=== PATIENT | female | born 1990 | race African-American/Black ===

== ENCOUNTER 2017-01-05 17:40 | Emergency (ER) | payer OTHER ==
[~2017-01-05] VITALS: Ht 170.2 cm; Wt 83.4 kg
[2017-01-05 17:52] VITALS: TEMP 37.1; Ht 170.2 cm; Wt 83.4 kg
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
[2017-01-05 18:13] VITALS: BP 126/75; PULSE 95; O2SAT 96
[2017-01-05] MEDS ORDERED: BCPILLS PO (18:13)
== END 2017-01-05 18:14 | disposition home or self-care (01) ==
LOC: C.EDC 17:42
DX: M79.659 Pain in unspecified thigh (principal); R10.9 Unspecified abdominal pain; M25.559 Pain in unspecified hip; V43.52XA Car driver injured in collision with other type car in traffic accident, initial encounter; Y93.89 Activity, other specified; Y99.8 Other external cause status; Y92.410 Unspecified street and highway as the place of occurrence of the external cause

== ENCOUNTER 2019-11-08 23:07 | Inpatient (IN) ==
[2019-11-08] MEDS ORDERED: OXYTOCIN 30 UNITS/500 ML BAG IV PRN (23:39)
[2019-11-08] MEDS ORDERED: PENICILLIN G POTASSIUM 3 MU in DEXTROSE 5% 100 ML IV PRN (23:39)
[2019-11-08] MEDS: LACTATED RINGER'S 1,000 ML IV PRN (23:40)
[2019-11-08] MEDS ORDERED: fentaNYL 2MCG/ML ROPIV 1.25MG/ML 100 ML BAG EPI ONE (23:51)
[2019-11-08] MEDS ORDERED: fentaNYL citrate 100 MCG/2 ML VIAL ONE (23:51)
[2019-11-08] MEDS ORDERED: ePHEDrine sulfate 50 MG/ML AMP ONE (23:51)
[2019-11-08] MEDS ORDERED: BUPIVACAINE 0.25% 30 ML VIAL ONE (23:51)
--- NOTE | 2019-11-08 23:55 | Anesthesiology Consultation ---
Date of Service November 08, 2019 Assessment & Plan ASA ASA2 Proposed Anesthesia Anesthesia Type: Labor Epidural Risk / Benefits Reviewed With: PT / POA / Parent / Guardian, Accepts Plan and Informed Consent Obtained History Height/Weight Height: 5 ft 7 in Weight: 101.151 kg Allergies Allergy/AdvReac Type Severity Reaction Status Date / Time No Known Allergies Allergy Verified 11/08/19 23:15 Medications Home Medications Medication Instructions Recorded Confirmed Last Taken PNV cmb#95-ferrous fumarate-FA 1 tab PO DAILY 11/08/19 11/08/19 11/08/19 [] Active Medications Generic Name Dose Route Start Last Admin Trade Name Freq PRN Reason Stop Dose Admin Lactated Ringer's 1,000 mls @ 125 mls/hr 11/08/19 23:39 11/09/19 00:47 Lr IV 11/10/19 23:38 0 mls/hr .Q8H PRN Infusion L&D Protocol Protocol Penicillin G Potassium 6 mu/ 262 mls @ 262 mls/hr 11/09/19 00:01 11/09/19 00:25 Dextrose IV 11/09/19 01:00 262 mls/hr NOW STA Administration Past Medical History Medical History Vacuum-assisted vaginal delivery 04/2018 Exercise / Class Metabolic Activity II 4-5 Yardwork/Stairs/Walk up hill Past Surgical History Surgical History No history of previous surgery Past Anesthesia History No Hx of Anesthesia Complications and No Family Hx of Anesthesia Complications History of PONV No Hx of PONV and No Hx of Motion Sickness Social History Smoking Status: Never smoker Hx Alcohol Use: No Hx Substance Use: No Review of Systems denies fever/cough/ colds/ chest pain/ SOB/ CHITO Constitutional: no fever and no chills Respiratory: no cough and no dyspnea denies CHITO Cardiovascular: no chest pain and no dyspnea on exertion Physical Exam Vital Signs Last Vital Signs Temp 37.0 C 11/08/19 23:18 Pulse 103 H 11/09/19 00:54 Resp 18 11/08/19 23:18 BP 109/57 L 11/09/19 00:49 Pulse Ox 100 11/09/19 00:54 ENMT Mouth: no TMJ abnormality and no dentition abnormality Thyromental Distance: > or= 3.5 Finger Breadths Mallampati Class: II Neck neck extension not limited Respiratory normal respiratory effort; no respiratory distress Auscultation: lungs clear to auscultation bilaterally Cardiovascular Rate/Rhythm: regular rate and regular rhythm Neurologic moves all extremities Psychiatric Orientation: alert and oriented x 3 Testing Laboratory Results 11/08/19 23:48
[2019-11-09] MEDS ORDERED: PENICILLIN G POTASSIUM 6 MU in DEXTROSE 5% 250 ML IV STA (00:01)
[2019-11-09 00:04] LABS: Mean Corpuscular Hgb Conc 33.2 g/dL (32-36)
[2019-11-09 00:22] LABS: Hematocrit (blood only) 34.3 % (37-47); Hemoglobin 11.4 g/dL (12.0-16.0); Mean Corpuscular Hemoglobin 26.3 pg (25-34); RDW Coefficient of Variation 15.8 % (11.5-14.5); RDW Standard Deviation 45.6 fL (36.4-46.3); Red Blood Count 4.34 M/uL (4.2-5.4); White Blood Count 9.01 K/uL (4.8-10.8)
[2019-11-09 00:25] LABS: Platelet Count 156 K/uL (130-400)
[2019-11-09 00:26] LABS: Platelet Estimate Normal (Normal)
[2019-11-09] MEDS: LACTATED RINGER'S 1,000 ML IV PRN (00:47)
[2019-11-09] MEDS ORDERED: NALOXONE HCL 0.4 MG/1 ML VIAL/CARP IV PRN (00:56)
[2019-11-09] MEDS ORDERED: ACETAMINOPHEN 1,000 MG/100 ML VIAL IV STA (00:56)
[2019-11-09] MEDS ORDERED: ePHEDrine sulfate 50 MG/ML AMP IV PRN (00:56)
[2019-11-09] MEDS ORDERED: fentaNYL 2MCG/ML ROPIV 1.25MG/ML 100 ML BAG EPI PRN (00:56)
[2019-11-09] MEDS ORDERED: ONDANSETRON INJ 2 MG/ML 2 ML VIAL IV PRN (00:56)
[2019-11-09] MEDS ORDERED: DiphenhydrAMINE HCL 50 MG/ML VIAL IV PRN (00:56)
[2019-11-09] MEDS ORDERED: NALBUPHINE HCL INJ 10 MG/ML AMP IV PRN (00:56)
[2019-11-09] MEDS ORDERED: NALOXONE HCL 1 MG in SODIUM CHLORIDE 0.9% 1000ML 1,000 ML IV PRN (00:56)
--- NOTE | 2019-11-09 03:03 | Obstetrical Progress Note ---
Date of Service November 09, 2019 Assessment & Plan Admission and Anticipated Discharge Date Admission Date: November 08, 2019 Subjective Pt doing well Received epidural analgesia VE: 10100/-1 Bladder cath SROM- thick meconium Anticipate VD Results & Data ([facility]) Vital Signs (Past 12 Hours) Vital Signs Temp Pulse Resp BP Pulse Ox 11/09/19 02:59 120 H 99 11/09/19 02:57 131 H 94 11/09/19 02:54 106 H 97 11/09/19 02:49 132 H 99 11/09/19 02:44 125 H 98 11/09/19 02:39 97 H 99 11/09/19 02:34 122 H 98 11/09/19 02:29 100 H 98 11/09/19 02:27 115 H 92 11/09/19 02:24 117 H 98 11/09/19 02:19 118 H 98 11/09/19 02:14 116 H 100 11/09/19 02:09 94 H 128/59 L 100 11/09/19 02:04 95 H 99 11/09/19 02:00 108 H 18 91 11/09/19 01:59 118 H 99 11/09/19 01:54 114 H 87 L 11/09/19 01:49 105 H 100 11/09/19 01:44 96 H 99 11/09/19 01:39 109 H 105/55 L 97 11/09/19 01:35 112 H 150/56 H 11/09/19 01:34 107 H 98 11/09/19 01:31 95 H 82/43 L 11/09/19 01:30 18 11/09/19 01:29 104 H 97/51 L 100 11/09/19 01:25 101 H 94/52 L 11/09/19 01:24 102 H 100 11/09/19 01:23 94 H 92/50 L 11/09/19 01:19 103 H 100 11/09/19 01:14 101 H 101/58 L 99 11/09/19 01:09 113 H 102/67 100 11/09/19 01:07 96 H 109/57 L 11/09/19 01:05 100 H 98/55 L 11/09/19 01:04 103 H 99 11/09/19 01:03 97 H 101/50 L 11/09/19 01:01 96 H 117/56 L 05/19/20 01:00 18 11/09/19 00:59 97 H 100 11/09/19 00:54 103 H 100 11/09/19 00:49 116 H 109/57 L 100 11/09/19 00:47 117 H 123/58 L 11/09/19 00:45 36.9 C 121 H 134/61 11/09/19 00:44 117 H 100 11/09/19 00:43 104 H 116/56 L 11/09/19 00:41 112 H 136/60 11/09/19 00:39 113 H 99 11/09/19 00:37 124/95 11/09/19 00:34 116 H 134/91 99 11/09/19 00:29 110 H 99 11/09/19 00:24 116 H 99 11/09/19 00:20 97 H 101/62 11/09/19 00:19 97 H 99 11/09/19 00:18 89 89 L 11/09/19 00:14 93 H 96 11/09/19 00:09 109 H 94 11/08/19 23:18 37.0 C 18 11/08/19 23:13 37.0 C 103 H 20 109/56 L
[2019-11-09] MEDS ORDERED: Nursing to Pharmacy Communication ONE (03:17)
[2019-11-09] MEDS ORDERED: METHYLERGONOVINE MALEATE 0.2 MG/ML AMP ONE (06:03)
[2019-11-09] MEDS ORDERED: SUPERCREAM 0.870% 15 GM JAR EXT PRN (06:14)
[2019-11-09] MEDS ORDERED: miSOPROStoL 200 MCG TAB PR ONE (06:14)
[2019-11-09] MEDS ORDERED: ACETAMINOPHEN 325 MG TAB PO PRN (06:14)
[2019-11-09] MEDS ORDERED: OXYTOCIN 30 UNITS/500 ML BAG IV PRN (06:14)
[2019-11-09] MEDS ORDERED: bisacodyL 10 MG SUPP PR PRN (06:14)
[2019-11-09] MEDS ORDERED: BENZOCAINE 20% AER SPR 82.5 GM CAN EXT PRN (06:14)
[2019-11-09] MEDS ORDERED: METHYLERGONOVINE MALEATE 0.2 MG/ML AMP IM ONE (06:14)
[2019-11-09] MEDS ORDERED: DIPHTHERIA/TETANUS/PERTUSSIS 0.5 ML SYR/VIAL IM ONE (06:14)
[2019-11-09] MEDS ORDERED: HYDROCORTISONE ACETATE 25 MG SUPP PR PRN (06:14)
[2019-11-09] MEDS ORDERED: miSOPROStoL 200 MCG TAB ONE (06:32)
[2019-11-09] MEDS: IBUPROFEN 600 MG TAB PO PRN ×4 (06:48→20:09)
[2019-11-09] MEDS: PRENATAL VITAMIN 1 TAB PO SCH (08:37)
[2019-11-09] MEDS: DOCUSATE SODIUM 100 MG CAP PO SCH ×2 (08:37→21:33)
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
[2019-11-09] MEDS ORDERED: COSYNTROPIN 1,000 MCG in SODIUM CHLORIDE 0.9% 50 ML IV ONE (09:30)
--- NOTE | 2019-11-09 15:38 | Delivery Summary ---
DATE OF OPERATION: 11/09/2019 The patient delivered a live infant in left occiput anterior presentation. There was no nuchal cord. was delivered, placed on mother's abdomen. Delayed cord clamp was performed. Cord blood was obtained. Placenta was spontaneously delivered. Inspection of the perineum showed a second-degree midline laceration which is repaired in layers with Vicryl. Rectal exam post repair showed good sphincter tone. The patient did have a second-degree midline laceration. ESTIMATED BLOOD LOSS: 450 mL. Baby and mother are doing well in recovery. All instruments are accounted for x2. I attest to the content of the Intraoperative Record and any orders documented therein. Any exceptions are noted below. MTDD
[2019-11-10] MEDS: IBUPROFEN 600 MG TAB PO PRN (03:57)
[2019-11-10 07:00] LABS: Hematocrit (blood only) 29.1 % (37-47); Hemoglobin 9.6 g/dL (12.0-16.0); Mean Corpuscular Hemoglobin 26.2 pg (25-34); Mean Corpuscular Volume 79.5 fL (80-100); RDW Coefficient of Variation 15.9 % (11.5-14.5); RDW Standard Deviation 46.1 fL (36.4-46.3); Red Blood Count 3.66 M/uL (4.2-5.4); White Blood Count 14.14 K/uL (4.8-10.8)
[2019-11-10 07:18] LABS: Platelet Count 149 K/uL (130-400)
[2019-11-10 07:19] LABS: Platelet Estimate Normal (Normal)
--- NOTE | 2019-11-10 07:50 | Obstetrical Progress Note ---
Date of Service November 10, 2019 Assessment & Plan Admission and Anticipated Discharge Date Admission Date: November 08, 2019 Subjective Patient is seen and examined. She feels well, no complaints. Ambulating without dizziness Voiding without difficulty Tolerating regular diet with out N&V Bleeding is minimal No fever/ chills/ CP/ SOB/ N&V/ Leg pain Breast feeding without problems Vital Signs Temp Pulse Pulse Resp BP BP Pulse Ox 11/10/19 03:45 36.6 C 60 18 104/66 99 11/09/19 23:30 36.8 C 55 L 18 108/64 11/09/19 21:30 36.7 C 11/09/19 19:45 36.6 C 59 L 18 108/64 95 11/09/19 15:55 36.9 C 60 16 115/58 L 98 11/09/19 13:00 36.8 C 61 18 126/74 97 11/09/19 10:15 37.2 C 65 16 125/73 97 11/09/19 09:46 68 121/60 11/09/19 09:31 63 116/56 L 11/09/19 09:16 61 128/62 11/09/19 09:01 59 L 126/58 L 11/09/19 08:46 65 122/57 L 11/09/19 08:31 67 129/63 11/09/19 08:16 74 20 130/63 11/09/19 08:01 62 137/67 11/09/19 07:56 56 L 137/62 Lab Results 11/08/19 11/10/19 Range/Units 23:48 06:20 WBC 9.01 14.14 H (4.8-10.8) K/uL RBC 4.34 3.66 L (4.2-5.4) M/uL Hgb 11.4 L 9.6 L (12.0-16.0) g/dL Hct 34.3 L 29.1 L (37-47) % MCV 79.0 L 79.5 L (80-100) fL MCH 26.3 26.2 (25-34) pg MCHC 33.2 33.0 (32-36) g/dL RDW Std Deviation 45.6 46.1 (36.4-46.3) fL RDW Coeff of Kenisha 15.8 H 15.9 H (11.5-14.5) % Plt Count 156 149 (130-400) K/uL MPV 12.0 H (7.4-10.4) fL Platelet Estimate Normal Normal (Normal) PE: General: Alert, orientedx3, NAD Abd: soft, NT, fundus firm, below Umbilicus Perineum intact, Lochia rubra minimal Ext; NT, no edema AP: 29 yo s/p , ppd# 1 VSS Afebrile doing well Continue routine care Desires d/c today All questions were answered D/C home , f/u in office Results & Data ([facility]) Vital Signs (Past 12 Hours) Vital Signs Temp Pulse Resp BP Pulse Ox 11/10/19 03:45 36.6 C 60 18 104/66 99 11/09/19 23:30 36.8 C 55 L 18 108/64 11/09/19 21:30 36.7 C
[2019-11-10] MEDS: PRENATAL VITAMIN 1 TAB PO SCH (08:03)
[2019-11-10] MEDS: DOCUSATE SODIUM 100 MG CAP PO SCH (08:03)
[2019-11-10] MEDS ORDERED: bisacodyL 5 MG TABEC PO SCH (20:00)
== END 2019-11-10 11:20 | disposition home or self-care (01) | DRG 807 ==
LOC: OPB 23:07 → 4S1 23:11 → 4S2 11-09 10:28

== ENCOUNTER 2021-06-14 23:44 | Inpatient (IN) ==
[2021-06-15] MEDS ORDERED: LACTATED RINGER'S 1,000 ML IV PRN (00:24)
[2021-06-15] MEDS ORDERED: OXYTOCIN 30 UNITS/500 ML BAG IV PRN ×2 (00:24→04:09)
--- NOTE | 2021-06-15 00:38 | History & Physical Report ---
Date of Service June 15, 2021 Assessment & Plan (1) Active labor at term: Plan: 31-year-old -0-0-2 at 40 weeks and 2 days of gestation presenting in active labor with regular contractions, Vital signs stable afebrile, heart rate reassuring, GBS is negative, Patient denies pain management including epidural, Plan to admit, monitor, IV fluids and labs and anticipate Admission and Anticipated Discharge Date Admission Date: June 15, 2021 History of Present Illness Primary Care Provider: NO PCP Patient is a 31-year-old -0-0-2 at 40 weeks and 2 days of gestation who has been having contractions all day yesterday and they got closer and more regular after 8:30 PM. They became every 4 minutes and more painful. She called me around 11 PM and I recommended her to come in. Her stated that she wanted to stay at home as long as possible and she has a Dula. I still recommended to come in. Now she presenting to labor and delivery in active labor having contractions every 2 to 3 minutes and declines epidural for pain. Her cervix is 6 cm dilated, 70% effaced head at -2 station, heart rate reassuring. GBS is negative. Her has been uncomplicated except sickle cell trait, is negative, she is anemic and received IV iron transfusions. Allergies Allergy/AdvReac Type Severity Reaction Status Date / Time No Known Allergies Allergy Verified 11/08/19 23:15 Home Medications Medication Instructions Recorded Confirmed Type vit no.95-ferrous 1 tab PO DAILY 11/08/19 11/08/19 History fumarate 28 mg-folic acid 800 mcg tablet () cholecalciferol (vitamin D3) 100 100 mcg PO DAILY 11/09/19 11/09/19 History mcg (4,000 unit) capsule (Vitamin D3) ferrous sulfate 325 mg (65 mg 325 mg PO DAILY 11/09/19 11/09/19 History iron) tablet (iron) Patient History Medical History (Updated 06/15/21 @ 00:37 by Jaskaran Evans MD) Vacuum-assisted vaginal delivery 04/2018 Surgical History No history of previous surgery Social History Smoking Status: Never smoker Hx Alcohol Use: No Hx Substance Use: No Preferred Language: [place] Communication Ability: Effective In Home Aide Required: No Beliefs That Will Affect Care: None marital status: Current Living Situation: Spouse and Significant Other Current Living Situation Comment: house with and son Other Information That Helps Us Care for You: No Feels Safe at Home: Yes Safety Concerns: Feels Safe At This Time Assistive Devices: None OB History 2 full-term vaginal deliveries, first one was vacuum extraction, second one was with no complications 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
[2021-06-15 01:19] LABS: Hemoglobin 11.8 g/dL (12.0-16.0); Mean Corpuscular Hemoglobin 28.2 pg (25-34); Mean Corpuscular Hgb Conc 33.7 g/dL (32-36); Mean Corpuscular Volume 83.7 fL (80-100); Mean Platelet Volume 12.7 fL (7.4-10.4); Platelet Count 130 K/uL (130-400); Platelet Estimate Normal (Normal); RDW Coefficient of Variation 15.4 % (11.5-14.5); RDW Standard Deviation 47.3 fL (36.4-46.3); Red Blood Count 4.18 M/uL (4.2-5.4); White Blood Count 9.79 K/uL (4.8-10.8)
[2021-06-15] MEDS ORDERED: LIDOCAINE 1% LOCAL 20 ML VIAL ONE (03:47)
[2021-06-15] MEDS ORDERED: HYDROCORTISONE ACETATE 25 MG SUPP PR PRN (04:09)
[2021-06-15] MEDS ORDERED: BENZOCAINE 20% AER SPR 82.5 GM CAN EXT PRN (04:09)
[2021-06-15] MEDS ORDERED: bisacodyL 10 MG SUPP PR PRN (04:09)
[2021-06-15] MEDS ORDERED: ACETAMINOPHEN 325 MG TAB PO PRN (04:09)
[2021-06-15] MEDS ORDERED: DIPHTHERIA/TETANUS/PERTUSSIS 0.5 ML SYR/VIAL IM ONE (04:09)
[2021-06-15] MEDS ORDERED: SUPERCREAM 0.870% 15 GM JAR EXT PRN (04:09)
[2021-06-15] MEDS ORDERED: MEASLES, MUMPS & RUBELLA VIRUS VIAL SQ ONE (04:09)
[2021-06-15] MEDS ORDERED: OXYTOCIN 10 UNITS/ML 10ML VIAL IM ONE (04:09)
--- NOTE | 2021-06-15 04:16 | Delivery Summary ---
Vaginal Delivery Summary Date of Service June 15, 2021 Vaginal Delivery Summary Patient was found to be fully dilated and desire to push she pushed. She pushed thorugh only 2 contractions and delivered the head without difficulty. There was a nuchal cord around the neck x1 which was reduced. And the shoulders were delivered with minimal traction,the baby was handed off to the mother where mouth and nose were suctioned. Baby was moving and crying at that point. Mom desired to wait for 4 minutes until cord was clamped x2 and cut. The cord blood was obtained. And the placenta was found to be in the vagina, delivered spontaneously as intact and complete. Patient has not had epidural for pain and she was very sensitive to touch and declined vaginal exam. Bleeding was minimal and no indications were found for uterine exploration. There was a small second-degree perineal laceration at the posterior fourchette. Lidocaine was used for local anesthesia. Rectal exam was done and excellent sphincter tone was noted. It was repaired with 2-0 Vicryl in a running locked fashion. Excellent hemostasis was achieved. EBL was 150 mL. Mom and baby tolerated procedure well. Sponge needle instrument count was correct x2. Baby was a viable male infant, Apgars 8/9 and weight is pending. No complications happened and I was present during whole procedure.
[2021-06-15] MEDS ORDERED: OXYTOCIN 10 UNITS/ML VIAL ONE (04:35)
[2021-06-15] MEDS: oxyCODONE/ACETAMINOPHEN 5mg/325mg TAB PO PRN ×3 (04:37→20:27)
[2021-06-15] MEDS: IBUPROFEN 600 MG TAB PO PRN ×3 (04:37→20:28)
[2021-06-15] MEDS: FERROUS SULFATE 325 MG TAB PO SCH (07:59)
[2021-06-15] MEDS: PRENATAL VITAMIN 1 TAB PO SCH (07:59)
[2021-06-15] MEDS: DOCUSATE SODIUM 100 MG CAP PO SCH ×2 (07:59→20:27)
[2021-06-16] MEDS: IBUPROFEN 600 MG TAB PO PRN ×3 (00:52→09:18)
[2021-06-16 06:31] LABS: Hemoglobin 10.8 g/dL (12.0-16.0); Mean Corpuscular Hemoglobin 27.9 pg (25-34); Mean Corpuscular Hgb Conc 32.7 g/dL (32-36); Mean Corpuscular Volume 85.3 fL (80-100); Mean Platelet Volume 11.8 fL (7.4-10.4); Platelet Count 125 K/uL (130-400); RDW Coefficient of Variation 15.8 % (11.5-14.5); RDW Standard Deviation 49.1 fL (36.4-46.3); Red Blood Count 3.87 M/uL (4.2-5.4); White Blood Count 11.15 K/uL (4.8-10.8)
--- NOTE | 2021-06-16 08:38 | Obstetrical Progress Note ---
Date of Service June 16, 2021 Assessment & Plan Admission and Anticipated Discharge Date Admission Date: June 15, 2021 Subjective Patient is seen and examined. She feels well, no complaints. Ambulating without dizziness Voiding without difficulty Tolerating regular diet with out N&V Bleeding is minimal No fever/ chills/ CP/ SOB/ N&V/ Leg pain Breast feeding without problems Vital Signs Temp Pulse Resp BP Pulse Ox 06/16/21 00:45 36.6 C 72 16 104/63 97 Vital Signs Temp Pulse Resp BP Pulse Ox 06/16/21 00:45 36.6 C 72 16 104/63 97 06/15/21 20:30 36.8 C 79 16 107/68 97 06/15/21 16:19 36.6 C 65 20 114/50 L 06/15/21 11:37 36.7 C 59 L 20 101/64 Lab Results 06/15/21 06/15/21 06/16/21 Range/Units 00:31 00:43 06:14 WBC 9.79 11.15 H (4.8-10.8) K/uL RBC 4.18 L 3.87 L (4.2-5.4) M/uL Hgb 11.8 L 10.8 L (12.0-16.0) g/dL Hct 35.0 L 33.0 L (37-47) % MCV 83.7 85.3 (80-100) fL MCH 28.2 27.9 (25-34) pg MCHC 33.7 32.7 (32-36) g/dL RDW Std Deviation 47.3 H 49.1 H (36.4-46.3) fL RDW Coeff of Kenisha 15.4 H 15.8 H (11.5-14.5) % Plt Count 130 125 L (130-400) K/uL MPV 12.7 H 11.8 H (7.4-10.4) fL Platelet Estimate Normal (Normal) SARS-CoV-2, RNA, NAAT NEGATIVE (NEGATIVE) PE: General: Alert, orientedx3, NAD Abd: soft, NT, fundus firm, below Umbilicus Perineum intact, Lochia rubra minimal Ext; NT, no edema AP: 31 yo s/p , ppd# 1 VSS Afebrile doing well Continue routine care All questions were answered Desires d/c Discussed when to call D/C home , f/u in office Breast Results & Data ([facility]) Vital Signs (Past 12 Hours) Vital Signs Temp Pulse Resp BP Pulse Ox 06/16/21 00:45 36.6 C 72 16 104/63 97
[2021-06-16] MEDS: PRENATAL VITAMIN 1 TAB PO SCH (09:18)
[2021-06-16] MEDS: FERROUS SULFATE 325 MG TAB PO SCH (09:18)
[2021-06-16] MEDS: DOCUSATE SODIUM 100 MG CAP PO SCH (09:18)
[2021-06-16] MEDS ORDERED: bisacodyL 5 MG TABEC PO SCH (20:00)
== END 2021-06-16 11:25 | disposition home or self-care (01) | DRG 806 ==
LOC: OPB 23:44 → 4S1 23:45 → 4S2 06-15 06:27